=== PATIENT | female | born 1990 | race African-American/Black ===

== ENCOUNTER 2017-01-26 16:06 | Emergency (ER) | payer OTHER ==
[~2017-01-26] VITALS: Ht 162.6 cm; Wt 88.5 kg
--- NOTE | ~2017-01-26 | US61 ---
[facility] A Service of [facility] RADIOLOGY TEXT RESULTS PATIENT: CHEY GARSIA LOCATION: CFTX : [birth year] UNIT #: [id number] AGE: [address]: Adelita Marquez APRN SEX: F ORDER DR: [id number] [facility] [address] [place], [place] [address] [id number] MR#: [id number] Acc #: [id number] NAME: CHEY GARSIA. : 1990 SEX: F STUDY DATE/TIME: 01/26/2017 18:53 UNIT: CFTX ROOM: STUDY DESCRIPTION: US /Mat <14Wk / Attending Physician: Adelita Marquez A.P.R.N. Ordering Physician: Hannah Santos Pa-C Primary Care Physician: Alem Primary Care Physician MEDICAL IMAGING REPORT This report is preliminary unless electronic signature is present EXAM sonogram. CLINICAL HISTORY 3, AB 1, LMP 12/10/2016. Quantitative HCG unavailable. Complains of bilateral pelvic pain for one day. FINDINGS Real-time examination was performed utilizing both transabdominal and endovaginal scanning. Examination confirms an early intrauterine with a mean sac diameter corresponding to a 8-nobu-4-day gestation. heart rate was detected. There is a small amount of subchorionic hemorrhage but this involves less than 25% of the circumference of the sac. heart rate detected at 126 beats per minute. [place] rump length was also obtained corresponding to a 6-week, 2-day gestation. Average age by ultrasound of 6 weeks, 4 days corresponding to an EDC of 09/17/2017. Left ovary appears normal. Normal flow. The right ovary appears normal. No free fluid or adnexal masses. IMPRESSION 1. Ultrasound confirms an early single intrauterine with an average gestational age by ultrasound of 6 weeks, 4 days corresponding to an EDC of 09/17/2017. 2. Small mixed echogenic collection along the inferior aspect of the gestational sac could represent a small amount of subchorionic bleed or endometrial fluid. This is of undetermined clinical significance at this time. This involves only a small portion of the gestational sac. Clinical follow up may be warranted. 3. Ovaries and adnexa appear normal. Dictated by... Kindra Harris M.D. [facility] A Service of [facility] RADIOLOGY TEXT RESULTS PATIENT: CHEY GARSIA LOCATION: [facility] : [birth year] UNIT #: [id number] AGE: [address]: Adelita Marquez APRN SEX: F ORDER DR: THIS IS AN ELECTRONICALLY VERIFIED REPORT Kindra Harris M.D. at 01/27/2017 2:21 PM Salima TD: 01/26/2017 23:25 JOB #: [id number] MEDICAL IMAGING REPORT Page 1 of 1 COPY
[2017-01-26 17:57] LABS: URINE SOURCE CLEAN CATCH
[2017-01-26 18:04] LABS: URINE APPEARANCE CLEAR; URINE BILIRUBIN NEG (NEG); URINE BLOOD NEG (NEG); URINE COLOR YELLOW; URINE GLUCOSE NEG (NEG); URINE KETONE NEG (NEG); URINE LEUKOCYTE ESTERASE 3+ (NEG); URINE NITRATE NEG (NEG); URINE PH 6.5 (5-8); URINE PROTEIN NEG (NEG); URINE SPECIFIC GRAVITY 1.023 (1.003-1.035); URINE UROBILINOGEN 0.2 MG/DL (NEG)
[2017-01-26 18:07] LABS: CULTURE INDICATED? YES; URINE BACTERIA AUWI 2+ (NEGATIVE); URINE SQUAMOUS EPITHELIAL CELL FEW /[HPF]
[2017-01-26 18:47] LABS: BASOPHIL# 0.1 X10e3 (0-0.3); BASOPHIL% 0.9 % (0-2.5); EOSINOPHIL# 0.3 X10e3 (0-0.7); EOSINOPHIL% 4.2 % (0.0-7.0); HEMATOCRIT 36.6 % (35.0-45.0); HEMOGLOBIN 12.8 gm/dL (12.0-16.0); LYMPHOCYTE# 2.5 X10e3 (1.0-3.5); LYMPHOCYTE% 38.9 % (17.0-45.0); MEAN CELL VOLUME 89.6 FL (83-96); MEAN CORPUSCULAR HEMOGLOBIN 31.3 PG (28-34); MEAN CORPUSCULAR HGB CONC 34.9 g/dL (30-36); MEAN PLATELET VOLUME 8.3 FL (6.5-11.5); MONOCYTE# 0.6 X10e3 (0-1.0); MONOCYTE% 9.2 % (3.0-12.0); NEUTROPHIL% 46.8 % (40-75); PLATELET COUNT 260 X10e3 (140-420); RED BLOOD COUNT 4.09 X10e (3.90-5.30); RED CELL DISTRIBUTION WIDTH 13.2 % (11.0-15.5); WHITE BLOOD COUNT 6.4 X10e3 (4.0-10.5)
[2017-01-26 18:48] LABS: DIFF IND NO
[2017-01-26 19:07] LABS: BILIRUBIN,TOTAL 0.7 mg/dL (0.2-2.0); CREATININE SERUM 0.8 mg/dL (0.6-1.4); GLOM FILT RATE Estimated 119.7 mL/min (>60); POTASSIUM 3.5 mmol/L (3.5-5.1)
[2017-01-29 23:07] LABS: CHLAMYDIA TRACH Detected (Not Detected); N GONOR Not Detected (Not Detected)
== END 2017-01-26 20:20 | disposition home or self-care (01) ==
LOC: CFTX 16:06 → CED 16:06 → CFTX 19:49
PROVIDERS: Nurse Practitioner Family; Physician Assistant Medical
DX: O23.41 Unspecified infection of urinary tract in pregnancy, first trimester (principal); A59.01 Trichomonal vulvovaginitis; O99.331 Smoking (tobacco) complicating pregnancy, first trimester
CPT/HCPCS: 36415; 76801; 80053; 81003; 84702; 84703; 85025; 87086; 87491; 87591; 87808; 87905; 99284